=== PATIENT | male | born 2000 | race African-American/Black ===

== ENCOUNTER 2020-10-14 09:33 | Outpatient (CLI) | payer BC ==
[2020-10-14 12:06] LABS: #Eosinphils 0.1 10x3/uL (0.0-0.5); #Monocytes 0.3 10x3/uL (0.0-1.1); #Neutrophils 1.1 10x3/uL (1.5-8.4); %Eosinophils 3.4 % (0.0-6.0); %Lymphocytes 48.3 % (18.0-47.0); %Monocytes 10.9 % (0.0-10.0); %Neutrophils 36.1 % (40.0-75.0); Hemoglobin 14.7 g/dL (13.5-17.5); Mean Corpuscular HGB CONC 33.6 g/dL (32.0-36.0); Mean Corpuscular Hemoglobin 28.1 pg (27.0-33.0); Mean Corpuscular Volume 83.6 fl (81.2-95.1); Mean Platelet Volume 9.8 fl (7.4-10.4); Platelet Count 302 10x3/uL (150-450); RBC Distribution Width 12.4 % (11.5-14.5); Red Blood Cell (RBC) Count 5.24 10x6/uL (4.32-5.72); White Blood Cell (WBC) Count 2.9 10x3/uL (3.5-10.5)
[2020-10-14 12:39] LABS: Anion Gap 12 mmol/L (10-20); BUN (Urea Nitrogen) 8 mg/dL (8.9-20.6); Calc. Creatinine Clearance 0 mL/min (70-130); Calcium 9.6 mg/dL (7.8-10.44); Carbon Dioxide 27 mmol/L (22-29); Chloride 104 mmol/L (98-107); Glucose 69 mg/dL (70-105); Potassium 4.4 mmol/L (3.5-5.1); Sodium 139 mmol/L (136-145)
== END 2020-10-14 09:34 | disposition home or self-care (01) ==
LOC: LABBT 09:33
PROVIDERS: ATTEND Specialist
DX: Z01.812 Encounter for preprocedural laboratory examination (principal); K64.8 Other hemorrhoids
CPT/HCPCS: 80048; 85025

== ENCOUNTER 2020-10-19 06:43 | Day surgery (SDC) | payer BC ==
[2020-10-18 10:09] VITALS: BMI 24.6
[2020-10-19] MEDS ORDERED: Ketorolac Tromethamine 30 MG/ML VIAL ONE (08:05)
[2020-10-19] MEDS ORDERED: Acetaminophen 500 MG TAB ONE (08:05)
[2020-10-19] MEDS ORDERED: Lidocaine 1% w/Epinephrine 1:100K 20 ML VIAL ONE (08:59)
[2020-10-19] MEDS ORDERED: Bupivacaine 0.25% HCL 30 ML VIAL ONE (08:59)
[2020-10-19] MEDS ORDERED: Lidocaine 2% Jelly 5 ML TUBE ONE (08:59)
[2020-10-19] MEDS ORDERED: Fentanyl 100 MCG/2 ML VIAL ONE (09:01)
[2020-10-19] MEDS ORDERED: Lidocaine 1% PF 5 ML VIAL ONE (09:20)
[2020-10-19] MEDS ORDERED: Dexamethasone 20 MG/5 ML VIAL ONE (09:20)
[2020-10-19] MEDS ORDERED: Ondansetron PF 4 MG/2 ML Vial ONE (09:20)
[2020-10-19] MEDS ORDERED: PROPOFOL 200 MG/20 ML VIAL ONE (09:20)
== END 2020-10-19 12:30 | disposition home or self-care (01) ==
LOC: SDC 06:43
PROVIDERS: ATTEND Specialist
PROC: 06BY0ZC Excision of Hemorrhoidal Plexus, Open Approach (ICD-10-PCS; principal; 2020-10-19)
DX: K64.8 Other hemorrhoids (principal); K64.4 Residual hemorrhoidal skin tags
CPT/HCPCS: J0690; J1100; J1885; J2405; J2704; J3010; S0020